=== PATIENT | male | born 1990 | race Caucasian/White ===

== ENCOUNTER 2025-03-17 22:54 | Emergency (ER) | payer OTHER ==
[2025-03-17] MEDS: Amoxicillin/Clavulanate K 875-125 MG Tab PO ONE (23:26)
== END 2025-03-17 23:33 | disposition home or self-care (01) ==
LOC: KA.ED 22:54
DX: N48.22 Cellulitis of corpus cavernosum and penis (principal); Z79.899 Other long term (current) drug therapy
CPT/HCPCS: 99283; A9270-GY